=== PATIENT | male | born 1950 | race Caucasian/White ===

== ENCOUNTER 2018-11-22 04:19 | Inpatient (IN) | payer MEDICARE, OTHER ==
[2018-11-22] VITALS (13 sets, daily range): BP systolic 94–106; BP diastolic 53–62
[~2018-11-22] VITALS: Ht 177.8 cm; Wt 76.8 kg
[~2018-11-22 04:19] MED LIST: NO HOME MEDS
[2018-11-22] MEDS ORDERED: albuterol 2.5 MG/3 ML nebule CONTNEB PRN (04:25)
[2018-11-22 04:41] LABS: BASOPHILS # (AUTO) 0.1 X10'3 (0-0.2); BASOPHILS % (AUTO) 0.8 % (0-1); EOSINOPHILS % (AUTO) 7.6 % (0-6); HEMATOCRIT 48.7 % (42.0-52.0); HEMOGLOBIN 16.6 g/dl (14.0-17.9); LYMPHOCYTES % (AUTO) 15.9 % (21-51); MEAN CORPUSCULAR HEMOGLOBIN 32.3 PG (27.0-31.0); MEAN CORPUSCULAR HGB CONC 34.1 g/dL (33.0-36.5); MEAN CORPUSCULAR VOLUME 94.7 FL (78-98); MONOCYTES # (AUTO) 0.7 X10'3 (0-0.9); MONOCYTES % (AUTO) 5.8 % (2-12); NEUTROPHILS # (AUTO) 8.9 X10'3 (1.8-7.7); NEUTROPHILS % (AUTO) 69.9 % (42-75); PLATELET COUNT 180 X10'3 (140-440); RED BLOOD COUNT 5.15 X10'6 (4.70-6.10); WHITE BLOOD COUNT 12.7 X10'3 (4.5-11.0)
[2018-11-22 04:51] LABS: ABG BASE EXCESS -1.8 mmol/L (-2.0-3.0); ABG HCO3 24.8 mmol/L (22.0-26.0); ABG OXYGEN SATURATION 99.1 % (95-98); ABG PCO2 (T) 49.1 mmHg (35.0-45.0); ABG PH (T) 7.322 (7.350-7.450); ABG PO2 (T) 263.8 mmHg (83-108); ALLEN'S TEST Positive; FCOHb 0.8 % (0.5-1.5); FMetHb 0.3 % (0.3-1.12); MINUTE VOLUME 17 L/min; PATIENT TEMPERATURE 37.2; RESPIRATORY RATE 20 b/min; RESPIRATORY RATE (OBSERVED) 25 b/min; TOTAL HEMOGLOBIN 17.2 G/dl (14.0-17.9)
[2018-11-22 04:55] LABS: PARTIAL THROMBOPLASTIN TIME 27 SECONDS (22-32)
[2018-11-22 04:58] LABS: ALANINE AMINOTRANSFERASE 27 U/L (12-78); ALBUMIN 4.5 G/DL (3.4-5.0); ALBUMIN/GLOBULIN RATIO 1.2 (1.1-1.5); ALKALINE PHOSPHATASE 93 IU/L (46-116); ANION GAP 7 (8-16); ASPARTATE AMINO TRANSFERASE 23 U/L (10-37); BILIRUBIN,TOTAL 0.8 MG/DL (0.1-1.0); BLOOD UREA NITROGEN 18 MG/DL (7-18); BUN/CREATININE RATIO 17.5 (5.4-32.0); CALCIUM 9.5 MG/DL (8.5-10.1); CHLORIDE 105 MMOL/L (99-107); CREATININE 1.03 MG/DL (0.60-1.10); GLUCOSE 107 MG/DL (70-104); POTASSIUM 4.8 MMOL/L (3.5-5.1); SODIUM 141 MMOL/L (135-145); TOTAL CARBON DIOXIDE 29.1 MMOL/L (24-32); TOTAL PROTEIN 8.2 G/DL (6.4-8.2); eGFR 71 ML/MIN
--- NOTE | 2018-11-22 05:14 | NUR ---
Patient resting comfortably on Bipap, expresses relief of SOB. Family at bedside.
[2018-11-22 05:30] LABS: ABG BASE EXCESS -1.1 mmol/L (-2.0-3.0); ABG HCO3 24.4 mmol/L (22.0-26.0); ABG OXYGEN SATURATION 98.4 % (95-98); ABG PCO2 (T) 43.1 mmHg (35.0-45.0); ALLEN'S TEST Positive; FCOHb 0.5 % (0.5-1.5); FMetHb 0.3 % (0.3-1.12); FO2Hb 97.6 % (94-100); MINUTE VOLUME 14 L/min; RESPIRATORY RATE 20 b/min; RESPIRATORY RATE (OBSERVED) 23 b/min; TIDAL VOLUME 561 mL; TOTAL HEMOGLOBIN 17.3 G/dl (14.0-17.9)
[2018-11-22] MEDS ORDERED: dexamethasone sod phosphate 10mg/ml inj IV STA (05:30)
[2018-11-22] MEDS ORDERED: ALB0.5UD IH (05:39)
[2018-11-22] MEDS ORDERED: BUDE10.2 INH (05:39)
[2018-11-22] MEDS ORDERED: MULT-1074 PO (05:41)
[2018-11-22] MEDS ORDERED: mag hydrox/Alum hydrox/simeth 30ml oral suspension PO PRN (06:00)
[2018-11-22] MEDS ORDERED: ondansetron/PF 4mg/2ml inj IV PRN ×2 (06:00→09:50)
[2018-11-22] MEDS ORDERED: HYDROcodone/acetaminophen 5mg/325mg tablet PO PRN (06:00)
[2018-11-22] MEDS ORDERED: CefTRIAXone/D5W-Rocephin 1gm 50 ML IV ONE (06:00)
[2018-11-22] MEDS ORDERED: magnesium hydroxide 30ml (MOM) UD suspension PO PRN ×2 (06:00→09:50)
[2018-11-22] MEDS ORDERED: acetaminophen 325mg tablet PO PRN ×3 (06:00→09:50)
[2018-11-22] MEDS: normal saline 1000ml 1,000 ML IV SCH ×4 (06:51→22:01)
--- NOTE | 2018-11-22 06:51 | NUR ---
PT ANXIOUS IN BED ATTEMPTED TO CALL DR JACKSON, AWAITING CALL BACK.
[2018-11-22] MEDS ORDERED: LORazepam 2 mg/ml vial IV ONE (06:55)
[2018-11-22] MEDS ORDERED: albuterol 2.5 MG/3 ML nebule NEB SCH (07:00)
[2018-11-22] MEDS: budesonide 0.5mg/2ml UD nebule IH SCH ×2 (07:04→18:40)
[2018-11-22] MEDS ORDERED: sod chloride 0.9% 10ml flush syringe IV ONE (08:00)
[2018-11-22] MEDS ORDERED: methylPREDNISolone sod succ 125mg/2ml vial IV SCH (08:00)
[2018-11-22] MEDS ORDERED: etomidate 2mg/ml inj. ONE (08:00)
[2018-11-22] MEDS ORDERED: heparin, porcine 5000 units/ml vial SQ SCH (08:00)
[2018-11-22] MEDS ORDERED: succinylcholine 20mg/ml inj IV ONE ×2 (08:13→10:00)
[2018-11-22] MEDS: propofol 1000mg/100ml bottle 100 ML IV PRN ×7 (08:30→22:02)
[2018-11-22] MEDS: FENTANYL-0.9 % NACL/PF 100 ML IV PRN ×3 (08:31→15:30)
[2018-11-22 09:11] LABS: ABG BASE EXCESS -3.7 mmol/L (-2.0-3.0); ABG HCO3 24.9 mmol/L (22.0-26.0); ABG OXYGEN SATURATION 99.2 % (95-98); ABG PCO2 (T) 58.8 mmHg (35.0-45.0); ABG PH (T) 7.245 (7.350-7.450); ABG PO2 (T) 252.8 mmHg (83-108); FCOHb 0.6 % (0.5-1.5); FMetHb 0.5 % (0.3-1.12); FO2Hb 98.1 % (94-100); MINUTE VOLUME 11 L/min; PEEP 5 cm H2O; RESPIRATORY RATE 20 b/min; RESPIRATORY RATE (OBSERVED) 21 b/min; TOTAL HEMOGLOBIN 17.4 G/dl (14.0-17.9)
[2018-11-22] MEDS ORDERED: IPRA3AMP9 NEB (09:38)
[2018-11-22] MEDS ORDERED: HYDR-3972 PO (09:47)
[2018-11-22] MEDS ORDERED: ATOR10TA PO (09:47)
[2018-11-22] MEDS ORDERED: CHOL10002 PO (09:47)
[2018-11-22] MEDS ORDERED: DOCU100C40 PO (09:47)
[2018-11-22] MEDS ORDERED: GUAI200T5 PO (09:47)
[2018-11-22] MEDS ORDERED: FENTANYL-0.9 % NACL/PF 100 ML IV PRN (09:48)
[2018-11-22] MEDS ORDERED: propofol 1000mg/100ml bottle 100 ML IV SCH (09:48)
[2018-11-22] MEDS ORDERED: potassium Cl 20 mEq SR tablet PO PRN ×2 (09:50)
[2018-11-22] MEDS ORDERED: fentaNYL/PF 50MCG/1 ML 2ML syringe IV PRN (09:50)
[2018-11-22] MEDS ORDERED: potassium CL 10mEq/100ml bag 100 ML IV PRN ×2 (09:50)
[2018-11-22] MEDS ORDERED: ipratropium/albuterol 3ml nebule NEB PRN (09:50)
[2018-11-22] MEDS ORDERED: etomidate 2mg/ml inj. IV ONE (10:00)
[2018-11-22] MEDS ORDERED: ipratropium/albuterol 3ml nebule NEB SCH (11:00)
--- NOTE | 2018-11-22 11:10 | NUR ---
Pt arrived from ED via gurney and transferred to bed via slideboard. Pt sedated on propofol and fentanyl. 2 RN skin check performed with SABRA Magana. No wounds noted. Foam dsg placed to sacrum, pt hooked up to monitor with all VSS. Placed on vent on 50% FiO2. Pt placed in soft limb restraints. OGT in place. Pillows under all extremities. Will continue to monitor.
[2018-11-22] MEDS: ipratropium/albuterol 3ml nebule NEB SCH ×4 (11:13→22:28)
--- NOTE | 2018-11-22 12:05 | NUR ---
I have reviewed and agree with all medications administered and interventions performed by [facility] Student(ashley duarte) Addendum: 11/22/18 at 1206 by Andreia Goldberg RT Amended: Links added.
--- NOTE | 2018-11-22 18:15 | NUR ---
Problems reprioritized. Patient report given, questions answered & plan of care reviewed with Tor RN.
[2018-11-22] MEDS: methylPREDNISolone sod succ/PF 40mg inj. IV SCH (20:43)
[2018-11-22] MEDS: famotidine/PF 10 mg/ml inj IV SCH (20:43)
[2018-11-23] VITALS (24 sets, daily range): BP systolic 92–133; BP diastolic 45–78
[2018-11-23] MEDS: ipratropium/albuterol 3ml nebule NEB SCH ×6 (02:38→22:47)
[2018-11-23] MEDS: methylPREDNISolone sod succ/PF 40mg inj. IV SCH ×4 (03:08→20:47)
[2018-11-23] MEDS: propofol 1000mg/100ml bottle 100 ML IV PRN ×3 (03:08→17:35)
[2018-11-23 03:45] LABS: ABG BASE EXCESS -2.6 mmol/L (-2.0-3.0); ABG HCO3 23.2 mmol/L (22.0-26.0); ABG OXYGEN SATURATION 93.8 % (95-98); ABG PH (T) 7.356 (7.350-7.450); ABG PO2 (T) 63.6 mmHg (83-108); ALLEN'S TEST Positive; FCOHb 1.4 % (0.5-1.5); FMetHb 0.1 % (0.3-1.12); FO2Hb 92.4 % (94-100); MINUTE VOLUME 7 L/min; PATIENT TEMPERATURE 36.1; PEEP 5 cm H2O; RESPIRATORY RATE 20 b/min; RESPIRATORY RATE (OBSERVED) 20 b/min; TIDAL VOLUME 400 mL; TOTAL HEMOGLOBIN 15.7 G/dl (14.0-17.9)
--- NOTE | 2018-11-23 06:00 | NUR ---
RN Note -Shift Summary Attempting to wean sedation for extubation. During sedation vacation at beginning of shift, pt was very agitated and thrashing head and arms arm violently, coughing and bucking vent. Have been able to wean Fentanyl to 30 mcg and and Propofol 40 mcg with pt resting comfortably.
[2018-11-23] MEDS: FENTANYL-0.9 % NACL/PF 100 ML IV PRN (06:02)
[2018-11-23 06:36] LABS: ALANINE AMINOTRANSFERASE 26 U/L (12-78); ALBUMIN 3.9 G/DL (3.4-5.0); ALBUMIN/GLOBULIN RATIO 1.2 (1.1-1.5); ALKALINE PHOSPHATASE 79 IU/L (46-116); ANION GAP 8 (8-16); ASPARTATE AMINO TRANSFERASE 31 U/L (10-37); BILIRUBIN,TOTAL 0.7 MG/DL (0.1-1.0); BLOOD UREA NITROGEN 20 MG/DL (7-18); CALCIUM 8.4 MG/DL (8.5-10.1); CHLORIDE 105 MMOL/L (99-107); CREATININE 0.87 MG/DL (0.60-1.10); GLUCOSE 125 MG/DL (70-104); PHOSPHORUS 2.9 MG/DL (2.3-4.5); POTASSIUM 4.9 MMOL/L (3.5-5.1); SODIUM 140 MMOL/L (135-145); TOTAL CARBON DIOXIDE 27.3 MMOL/L (24-32); TOTAL PROTEIN 7.2 G/DL (6.4-8.2); TRIGLYCERIDES 157 MG/DL (20-135); eGFR 87 ML/MIN
[2018-11-23 06:51] LABS: BASOPHILS % (AUTO) 0 % (0-1); EOSINOPHILS % (AUTO) 0 % (0-6); HEMATOCRIT 43.9 % (42.0-52.0); HEMOGLOBIN 15.1 g/dl (14.0-17.9); LYMPHOCYTES # (AUTO) 0.8 X10'3 (1.1-4.8); LYMPHOCYTES % (AUTO) 5.9 % (21-51); MEAN CORPUSCULAR HEMOGLOBIN 32.8 PG (27.0-31.0); MEAN CORPUSCULAR HGB CONC 34.5 g/dL (33.0-36.5); MEAN CORPUSCULAR VOLUME 95.2 FL (78-98); MEAN PLATELET VOLUME 8.6 FL (7.4-10.4); MONOCYTES # (AUTO) 0.7 X10'3 (0-0.9); MONOCYTES % (AUTO) 5.2 % (2-12); NEUTROPHILS # (AUTO) 11.4 X10'3 (1.8-7.7); NEUTROPHILS % (AUTO) 88.9 % (42-75); PLATELET COUNT 180 X10'3 (140-440); RED BLOOD COUNT 4.61 X10'6 (4.70-6.10); RED CELL DISTRIBUTION WIDTH 14.1 % (11.5-14.5); WHITE BLOOD COUNT 12.8 X10'3 (4.5-11.0)
[2018-11-23 07:29] LABS: MAGNESIUM 2.1 MG/DL (1.5-2.4)
[2018-11-23] MEDS: budesonide 0.5mg/2ml UD nebule IH SCH ×2 (07:42→20:00)
[2018-11-23] MEDS ORDERED: CefTRIAXone/D5W-Rocephin 1gm 50 ML IV SCH (08:00)
[2018-11-23] MEDS: enoxaparin 40mg/0.4ml syringe SUBCUT SCH (08:00)
[2018-11-23] MEDS: CefTRIAXone/D5W-Rocephin 1gm 50 ML IV SCH (08:01)
[2018-11-23] MEDS: azithromycin/NS 500mg/250ml 250 ML IV SCH (08:01)
[2018-11-23] MEDS: famotidine/PF 10 mg/ml inj IV SCH ×2 (08:01→20:46)
--- NOTE | 2018-11-23 10:32 | NUR ---
Tube feeding consult, patient is intubated and sedated d/t respiratory failure and acute exacerbation of COPD, per MD note. Pt has h/o smoking Tube feeding recs below. Recommend: 1. Continuos tube feeding with Vital AF starting at 30 ml/hr and advance by 20 ml as tolerated to goal rate of 70 ml/hr to provide total volume of 1680 ml, 2016 cals, 126 g protein, and 1362 ml water. 2. Additional water flush 160 ml q 4 hours 3. Prealbumin q sunday and 4. daily weights Addendum: 11/23/18 at [address] Amended: Links added.
[2018-11-23] MEDS: normal saline 1000ml 1,000 ML IV SCH (12:40)
[2018-11-23] MEDS: mineral oil/petrolatum ophthal oint EACHEYE SCH ×2 (13:59→20:45)
--- NOTE | 2018-11-23 18:20 | NUR ---
Problems reprioritized. Patient report given, questions answered & plan of care reviewed with SABRA Pathak.
--- NOTE | 2018-11-23 18:29 | NUR ---
assumed care from Lucia malik no questions or concerns after assuming care
--- NOTE | 2018-11-23 19:30 | NUR ---
PATIENTS SON AND GRANDSON AT BEDSIDE VISITING PATENT IS ABLE TO RESPOND APPROPRIATELY USING HEAD KNODS AND THUMBS UP/DOWN FOR YES/NO QUESTIONS
[2018-11-23] MEDS: lactobacillus rhamnosus 10,000 MMU CELLS/CAPSULE PO SCH (20:46)
--- NOTE | 2018-11-23 21:47 | NUR ---
PATIENT IN BED EYES CLOSED RR EVEN UN LABORED NO OBSERVABLE S/S OF ACUTE STRESS AT THIS TIME
[2018-11-24] VITALS (24 sets, daily range): BP systolic 104–166; BP diastolic 52–89
--- NOTE | 2018-11-24 00:10 | NUR ---
patient in bed repositioned asked to be suctioned rr even un labored no observable s/s of acute stress at this time
[2018-11-24] MEDS: normal saline 1000ml 1,000 ML IV SCH ×2 (00:22→15:30)
[2018-11-24] MEDS: ipratropium/albuterol 3ml nebule NEB SCH ×6 (02:24→23:32)
[2018-11-24] MEDS: methylPREDNISolone sod succ/PF 40mg inj. IV SCH ×4 (02:38→20:58)
[2018-11-24] MEDS: mineral oil/petrolatum ophthal oint EACHEYE SCH ×4 (02:38→20:59)
--- NOTE | 2018-11-24 03:22 | NUR ---
patient in bed very calm, patient has been able to write down needs and questions with pen/paper. patient appears to be doing well, patient in bed eyes closed rr even un labored no observable s/s of acute stress at this time
[2018-11-24 03:55] LABS: ABG BASE EXCESS -1.1 mmol/L (-2.0-3.0); ABG HCO3 23.1 mmol/L (22.0-26.0); ABG OXYGEN SATURATION 93.5 % (95-98); ABG PCO2 (T) 36.7 mmHg (35.0-45.0); ABG PH (T) 7.416 (7.350-7.450); ABG PO2 (T) 64.8 mmHg (83-108); ALLEN'S TEST Positive; FCOHb 0.2 % (0.5-1.5); FMetHb 0.2 % (0.3-1.12); FO2Hb 93.1 % (94-100); MINUTE VOLUME 8 L/min; PATIENT TEMPERATURE 36.8; PEEP 5 cm H2O; RESPIRATORY RATE 20 b/min; RESPIRATORY RATE (OBSERVED) 20 b/min; TIDAL VOLUME 400 mL; TOTAL HEMOGLOBIN 14.6 G/dl (14.0-17.9)
--- NOTE | 2018-11-24 05:19 | NUR ---
PATIENT AWAKE IN BED EYES [id number] EASY TO AROUSE BY NAME, RR EVEN UN LABORED NO OBSERVABLE4 S/S OF ACUTE STRESS AT THIS TIME
[2018-11-24] MEDS: propofol 1000mg/100ml bottle 100 ML IV PRN (05:38)
[2018-11-24 05:47] LABS: ALANINE AMINOTRANSFERASE 25 U/L (12-78); ALBUMIN 3.5 G/DL (3.4-5.0); ALBUMIN/GLOBULIN RATIO 1.1 (1.1-1.5); ALKALINE PHOSPHATASE 64 IU/L (46-116); ANION GAP 7 (8-16); ASPARTATE AMINO TRANSFERASE 21 U/L (10-37); BILIRUBIN,TOTAL 0.4 MG/DL (0.1-1.0); BLOOD UREA NITROGEN 29 MG/DL (7-18); BUN/CREATININE RATIO 31.5 (5.4-32.0); CALCIUM 8.2 MG/DL (8.5-10.1); CHLORIDE 107 MMOL/L (99-107); CREATININE 0.92 MG/DL (0.60-1.10); GLUCOSE 144 MG/DL (70-104); MAGNESIUM 2.2 MG/DL (1.5-2.4); PHOSPHORUS 2.1 MG/DL (2.3-4.5); POTASSIUM 4.4 MMOL/L (3.5-5.1); SODIUM 140 MMOL/L (135-145); TOTAL CARBON DIOXIDE 26.3 MMOL/L (24-32); TOTAL PROTEIN 6.7 G/DL (6.4-8.2); eGFR 81 ML/MIN
[2018-11-24 05:54] LABS: BASOPHILS % (AUTO) 0.1 % (0-1); EOSINOPHILS % (AUTO) 0.1 % (0-6); HEMATOCRIT 40.8 % (42.0-52.0); HEMOGLOBIN 13.9 g/dl (14.0-17.9); LYMPHOCYTES # (AUTO) 0.6 X10'3 (1.1-4.8); MEAN CORPUSCULAR HEMOGLOBIN 32.3 PG (27.0-31.0); MEAN CORPUSCULAR HGB CONC 34.1 g/dL (33.0-36.5); MEAN CORPUSCULAR VOLUME 94.7 FL (78-98); MEAN PLATELET VOLUME 8.6 FL (7.4-10.4); MONOCYTES # (AUTO) 0.5 X10'3 (0-0.9); MONOCYTES % (AUTO) 3.2 % (2-12); NEUTROPHILS # (AUTO) 13.3 X10'3 (1.8-7.7); NEUTROPHILS % (AUTO) 92.6 % (42-75); PLATELET COUNT 174 X10'3 (140-440); RED BLOOD COUNT 4.31 X10'6 (4.70-6.10); RED CELL DISTRIBUTION WIDTH 13.9 % (11.5-14.5); WHITE BLOOD COUNT 14.4 X10'3 (4.5-11.0)
--- NOTE | 2018-11-24 06:21 | NUR ---
SBAR TO EDITH MONTAÑO NO QUESTIONS OR CONCERNS AFTER ASSUMING CARE
--- NOTE | 2018-11-24 06:25 | NUR ---
Patient in room [facility] 2013. I have received report from Lawson MONTAÑO and had the opportunity to ask questions and assume patient care. Addendum: 11/24/18 at 0625 by Janeth Trejo RN Amended: Links added.
[2018-11-24] MEDS: budesonide 0.5mg/2ml UD nebule IH SCH ×2 (07:00→19:12)
[2018-11-24] MEDS: CefTRIAXone/D5W-Rocephin 1gm 50 ML IV SCH (07:19)
[2018-11-24] MEDS: enoxaparin 40mg/0.4ml syringe SUBCUT SCH (07:21)
[2018-11-24] MEDS: famotidine/PF 10 mg/ml inj IV SCH ×2 (07:21→20:58)
[2018-11-24] MEDS: lactobacillus rhamnosus 10,000 MMU CELLS/CAPSULE PO SCH ×2 (07:21→20:58)
[2018-11-24] MEDS: azithromycin/NS 500mg/250ml 250 ML IV SCH (08:36)
--- NOTE | 2018-11-24 09:29 | NUR ---
Son at bedside.
--- NOTE | 2018-11-24 10:25 | NUR ---
Dirprivan decreased to 7.5 from 15. Pt. calm and alert at this time.
--- NOTE | 2018-11-24 11:57 | NUR ---
Pt. sat up at side of bed with PT.
[2018-11-24] MEDS: FENTANYL-0.9 % NACL/PF 100 ML IV PRN (14:48)
[2018-11-24] MEDS: methylnaltrexone br 12mg/0.6ml inj***SubQ only SQ SCH (15:45)
--- NOTE | 2018-11-24 19:15 | NUR ---
Informed Alex Lopez that pt has been vomiting tube feeding, order to D/C at this time.
--- NOTE | 2018-11-24 21:15 | NUR ---
Pt not tolerating free water as he is vomiting it up as well, will hold.
[2018-11-25] VITALS (24 sets, daily range): BP systolic 108–144; BP diastolic 47–79
[2018-11-25] MEDS: mineral oil/petrolatum ophthal oint EACHEYE SCH ×4 (02:33→20:44)
[2018-11-25] MEDS: methylPREDNISolone sod succ/PF 40mg inj. IV SCH ×4 (02:33→20:43)
[2018-11-25] MEDS: normal saline 1000ml 1,000 ML IV SCH ×2 (02:36→21:12)
[2018-11-25] MEDS: ipratropium/albuterol 3ml nebule NEB SCH ×4 (03:37→20:11)
[2018-11-25 03:51] LABS: ABG BASE EXCESS 2.4 mmol/L (-2.0-3.0); ABG HCO3 26.6 mmol/L (22.0-26.0); ABG OXYGEN SATURATION 91.8 % (95-98); ABG PCO2 (T) 39.5 mmHg (35.0-45.0); ABG PH (T) 7.445 (7.350-7.450); ABG PO2 (T) 58.2 mmHg (83-108); ALLEN'S TEST Positive; FCOHb 0.3 % (0.5-1.5); FMetHb 0.2 % (0.3-1.12); FO2Hb 91.3 % (94-100); PATIENT TEMPERATURE 36.7; PEEP 5 cm H2O; RESPIRATORY RATE (OBSERVED) 9 b/min; TOTAL HEMOGLOBIN 14.6 G/dl (14.0-17.9)
[2018-11-25 06:04] LABS: BASOPHILS % (AUTO) 0.1 % (0-1); EOSINOPHILS % (AUTO) 0 % (0-6); HEMATOCRIT 42.1 % (42.0-52.0); HEMOGLOBIN 14.2 g/dl (14.0-17.9); LYMPHOCYTES # (AUTO) 0.6 X10'3 (1.1-4.8); LYMPHOCYTES % (AUTO) 4.4 % (21-51); MEAN CORPUSCULAR HEMOGLOBIN 32.1 PG (27.0-31.0); MEAN CORPUSCULAR HGB CONC 33.7 g/dL (33.0-36.5); MEAN CORPUSCULAR VOLUME 95.1 FL (78-98); MEAN PLATELET VOLUME 8.7 FL (7.4-10.4); MONOCYTES # (AUTO) 0.5 X10'3 (0-0.9); MONOCYTES % (AUTO) 3.6 % (2-12); NEUTROPHILS # (AUTO) 11.7 X10'3 (1.8-7.7); NEUTROPHILS % (AUTO) 91.9 % (42-75); PLATELET COUNT 156 X10'3 (140-440); RED BLOOD COUNT 4.43 X10'6 (4.70-6.10); RED CELL DISTRIBUTION WIDTH 14.3 % (11.5-14.5); WHITE BLOOD COUNT 12.8 X10'3 (4.5-11.0)
[2018-11-25 06:12] LABS: ALANINE AMINOTRANSFERASE 25 U/L (12-78); ALBUMIN 3.5 G/DL (3.4-5.0); ALBUMIN/GLOBULIN RATIO 1.1 (1.1-1.5); ALKALINE PHOSPHATASE 57 IU/L (46-116); ANION GAP 6 (8-16); ASPARTATE AMINO TRANSFERASE 18 U/L (10-37); BILIRUBIN,TOTAL 0.6 MG/DL (0.1-1.0); BLOOD UREA NITROGEN 29 MG/DL (7-18); BUN/CREATININE RATIO 37.7 (5.4-32.0); CALCIUM 8.4 MG/DL (8.5-10.1); CHLORIDE 108 MMOL/L (99-107); CREATININE 0.77 MG/DL (0.60-1.10); GLUCOSE 123 MG/DL (70-104); MAGNESIUM 2.3 MG/DL (1.5-2.4); PHOSPHORUS 2.6 MG/DL (2.3-4.5); POTASSIUM 4.4 MMOL/L (3.5-5.1); PREALBUMIN 28.2 MG/DL (19-36); SODIUM 142 MMOL/L (135-145); TOTAL CARBON DIOXIDE 27.9 MMOL/L (24-32); TOTAL PROTEIN 6.8 G/DL (6.4-8.2); eGFR > 90 ML/MIN
[2018-11-25] MEDS: budesonide 0.5mg/2ml UD nebule IH SCH ×2 (07:16→20:11)
[2018-11-25] MEDS: famotidine/PF 10 mg/ml inj IV SCH ×2 (07:54→20:43)
[2018-11-25] MEDS: enoxaparin 40mg/0.4ml syringe SUBCUT SCH (07:56)
[2018-11-25] MEDS: azithromycin/NS 500mg/250ml 250 ML IV SCH (07:57)
[2018-11-25] MEDS: lactobacillus rhamnosus 10,000 MMU CELLS/CAPSULE PO SCH ×2 (07:57→20:35)
[2018-11-25] MEDS: CefTRIAXone/D5W-Rocephin 1gm 50 ML IV SCH (07:58)
[2018-11-25] MEDS ORDERED: ipratropium/albuterol 3ml nebule NEB PRN (10:05)
[2018-11-25] MEDS ORDERED: racepinephrine 11.25mg/0.5ml nebule NEB PRN (10:05)
--- NOTE | 2018-11-25 12:29 | NUR ---
F/u: Pt extubated advanced to mechanical soft/grind all/thin since edentulous per SP recs. LBM 11/22. Will monitor for ONS needs pending PO hx. Will continue to monitor. Recommend: 1. continue mechanical soft/thin/grind per SP recs since edentulous 2. monitor for ONS needs s/p extubation 3. bowel care as needed 4. wt per rx Addendum: 11/25/18 at [address] Amended: Links added.
--- NOTE | 2018-11-25 18:38 | NUR ---
Patient in room [facility] 2013. I have received report from Nathaly MONTAÑO and had the opportunity to ask questions and assume patient care.
[2018-11-26] VITALS (16 sets, daily range): BP systolic 107–144; BP diastolic 45–85
[2018-11-26] MEDS: mineral oil/petrolatum ophthal oint EACHEYE SCH ×2 (02:00→06:30)
[2018-11-26] MEDS: methylPREDNISolone sod succ/PF 40mg inj. IV SCH ×2 (02:02→07:42)
[2018-11-26] MEDS: ipratropium/albuterol 3ml nebule NEB SCH ×4 (03:08→18:57)
[2018-11-26 05:09] LABS: BASOPHILS % (AUTO) 0 % (0-1); EOSINOPHILS % (AUTO) 0 % (0-6); HEMOGLOBIN 13.5 g/dl (14.0-17.9); LYMPHOCYTES # (AUTO) 0.6 X10'3 (1.1-4.8); LYMPHOCYTES % (AUTO) 6.5 % (21-51); MEAN CORPUSCULAR HEMOGLOBIN 32.4 PG (27.0-31.0); MEAN CORPUSCULAR HGB CONC 34.7 g/dL (33.0-36.5); MEAN CORPUSCULAR VOLUME 93.3 FL (78-98); MEAN PLATELET VOLUME 8.7 FL (7.4-10.4); MONOCYTES # (AUTO) 0.4 X10'3 (0-0.9); MONOCYTES % (AUTO) 4.1 % (2-12); NEUTROPHILS # (AUTO) 8.8 X10'3 (1.8-7.7); NEUTROPHILS % (AUTO) 89.4 % (42-75); PLATELET COUNT 147 X10'3 (140-440); RED BLOOD COUNT 4.18 X10'6 (4.70-6.10); RED CELL DISTRIBUTION WIDTH 14.1 % (11.5-14.5); WHITE BLOOD COUNT 9.8 X10'3 (4.5-11.0)
[2018-11-26 05:23] LABS: ALANINE AMINOTRANSFERASE 24 U/L (12-78); ALBUMIN 3.1 G/DL (3.4-5.0); ALBUMIN/GLOBULIN RATIO 1.1 (1.1-1.5); ALKALINE PHOSPHATASE 47 IU/L (46-116); ANION GAP 6 (8-16); ASPARTATE AMINO TRANSFERASE 12 U/L (10-37); BILIRUBIN,TOTAL 0.5 MG/DL (0.1-1.0); BLOOD UREA NITROGEN 30 MG/DL (7-18); BUN/CREATININE RATIO 34.5 (5.4-32.0); CHLORIDE 109 MMOL/L (99-107); CREATININE 0.87 MG/DL (0.60-1.10); GLUCOSE 125 MG/DL (70-104); MAGNESIUM 2.3 MG/DL (1.5-2.4); PHOSPHORUS 2.6 MG/DL (2.3-4.5); POTASSIUM 4.2 MMOL/L (3.5-5.1); SODIUM 143 MMOL/L (135-145); TOTAL CARBON DIOXIDE 27.9 MMOL/L (24-32); TOTAL PROTEIN 5.9 G/DL (6.4-8.2); eGFR 87 ML/MIN
--- NOTE | 2018-11-26 06:24 | NUR ---
Problems reprioritized. Patient report given, questions answered & plan of care reviewed with Janeth MONTAÑO.
--- NOTE | 2018-11-26 06:33 | NUR ---
Patient in room [facility] 2013. I have received report from Rachael MONTAÑO and had the opportunity to ask questions and assume patient care.
[2018-11-26] MEDS: budesonide 0.5mg/2ml UD nebule IH SCH ×2 (06:51→18:57)
[2018-11-26] MEDS: methylnaltrexone br 12mg/0.6ml inj***SubQ only SQ SCH (07:28)
[2018-11-26] MEDS: normal saline 1000ml 1,000 ML IV SCH (07:30)
[2018-11-26] MEDS: CefTRIAXone/D5W-Rocephin 1gm 50 ML IV SCH (07:40)
[2018-11-26] MEDS: famotidine/PF 10 mg/ml inj IV SCH (07:41)
[2018-11-26] MEDS: enoxaparin 40mg/0.4ml syringe SUBCUT SCH (07:41)
[2018-11-26] MEDS: lactobacillus rhamnosus 10,000 MMU CELLS/CAPSULE PO SCH ×2 (07:41→19:34)
[2018-11-26] MEDS: azithromycin/NS 500mg/250ml 250 ML IV SCH (08:15)
--- NOTE | 2018-11-26 10:22 | NUR ---
Pt's son and DIL at bedside. Pt. sitting up in a chair after ambulating with PT.
--- NOTE | 2018-11-26 10:49 | NUR ---
ROUNDS NOTE: Pt. to transfer to PCU with Tele per Dr. Carbone. DC IVF.
--- NOTE | 2018-11-26 12:06 | NUR ---
Patient in room [facility] 2013. I have received report from Janeth MONTAÑO and had the opportunity to ask questions and assume patient care.
--- NOTE | 2018-11-26 12:20 | NUR ---
Received patient from CICU. Vital signs taken and within normal limits. laboratory monitor placed and alarms audible. Patient oriented to room and call light.
--- NOTE | 2018-11-26 12:24 | NUR ---
Pt. transferred to 3024A in wheelchair with all belongings in stable condition after giving phone report to Sasha MONTAÑO.
[2018-11-26] MEDS: methylPREDNISolone sod succ 125mg/2ml vial IV SCH ×2 (13:52→19:34)
--- NOTE | 2018-11-26 18:06 | NUR ---
Problems reprioritized. Patient report given, questions answered & plan of care reviewed with Mariana & Kenisha MONTAÑO. Patient stable at time of transfer of care.
[2018-11-26] MEDS: famotidine 20mg tablet PO SCH (19:34)
[2018-11-27] MEDS: HYDROcodone/acetaminophen 10/325mg tab PO PRN ×4 (00:24→19:23)
[2018-11-27] MEDS: ipratropium/albuterol 3ml nebule NEB SCH ×4 (01:26→20:07)
[2018-11-27 03:00] VITALS: BP 128/69
[2018-11-27] MEDS: methylPREDNISolone sod succ 125mg/2ml vial IV SCH ×4 (03:00→19:22)
[2018-11-27 05:18] LABS: BASOPHILS % (AUTO) 0.2 % (0-1); EOSINOPHILS % (AUTO) 0 % (0-6); HEMATOCRIT 39.8 % (42.0-52.0); HEMOGLOBIN 13.9 g/dl (14.0-17.9); LYMPHOCYTES # (AUTO) 0.7 X10'3 (1.1-4.8); LYMPHOCYTES % (AUTO) 7.2 % (21-51); MEAN CORPUSCULAR HEMOGLOBIN 32.6 PG (27.0-31.0); MEAN CORPUSCULAR VOLUME 93.2 FL (78-98); MEAN PLATELET VOLUME 8.6 FL (7.4-10.4); MONOCYTES # (AUTO) 0.8 X10'3 (0-0.9); MONOCYTES % (AUTO) 8.4 % (2-12); NEUTROPHILS # (AUTO) 8.6 X10'3 (1.8-7.7); NEUTROPHILS % (AUTO) 84.2 % (42-75); PLATELET COUNT 137 X10'3 (140-440); RED BLOOD COUNT 4.27 X10'6 (4.70-6.10); RED CELL DISTRIBUTION WIDTH 13.8 % (11.5-14.5); WHITE BLOOD COUNT 10.2 X10'3 (4.5-11.0)
[2018-11-27 05:26] LABS: ALANINE AMINOTRANSFERASE 29 U/L (12-78); ALBUMIN 3.1 G/DL (3.4-5.0); ALBUMIN/GLOBULIN RATIO 1.1 (1.1-1.5); ALKALINE PHOSPHATASE 43 IU/L (46-116); ANION GAP 5 (8-16); ASPARTATE AMINO TRANSFERASE 16 U/L (10-37); BILIRUBIN,TOTAL 0.6 MG/DL (0.1-1.0); BLOOD UREA NITROGEN 26 MG/DL (7-18); BUN/CREATININE RATIO 33.8 (5.4-32.0); CALCIUM 8.3 MG/DL (8.5-10.1); CHLORIDE 109 MMOL/L (99-107); CREATININE 0.77 MG/DL (0.60-1.10); GLUCOSE 124 MG/DL (70-104); MAGNESIUM 2.3 MG/DL (1.5-2.4); PHOSPHORUS 2.6 MG/DL (2.3-4.5); POTASSIUM 4.2 MMOL/L (3.5-5.1); SODIUM 143 MMOL/L (135-145); TOTAL CARBON DIOXIDE 28.8 MMOL/L (24-32); TOTAL PROTEIN 5.8 G/DL (6.4-8.2); eGFR > 90 ML/MIN
--- NOTE | 2018-11-27 05:41 | NUR ---
[place] documentation: I have reviewed and agree with all interventions, assessments performed and documented by Kenisha MONTAÑO. [place] Medication Administration: For this medication-pass time frame, all medication were reviewed, dispensed, administered and documented per hospital policy by Kenisha MONTAÑO.
[2018-11-27 06:00] VITALS: BP 131/69
--- NOTE | 2018-11-27 06:29 | NUR ---
Problems reprioritized. Patient report given, questions answered & plan of care reviewed with Carlee MONTAÑO.
[2018-11-27] MEDS: famotidine 20mg tablet PO SCH ×2 (07:42→20:00)
[2018-11-27] MEDS: enoxaparin 40mg/0.4ml syringe SUBCUT SCH (07:42)
[2018-11-27] MEDS: lactobacillus rhamnosus 10,000 MMU CELLS/CAPSULE PO SCH ×2 (07:43→19:22)
[2018-11-27] MEDS: azithromycin 250mg tablet PO SCH (07:43)
[2018-11-27] MEDS: CefTRIAXone/D5W-Rocephin 1gm 50 ML IV SCH (08:02)
[2018-11-27] MEDS: budesonide 0.5mg/2ml UD nebule IH SCH ×2 (09:24→20:07)
--- NOTE | 2018-11-27 09:47 | NUR ---
Reassessment: Pt s/p f/u BSS 11/[address] recs to continue current diet as pt is tolerating. Pt likely meeting nutrient needs consistently documented with 100% PO intake with some 50% PO intake. Wt stable. LBM 11/26. No edema or wounds. No nutrition diagnosis at this time. Will continue to follow. Recommend: 1. continue mechanical soft/grind all with thin liquids per SP recs since edentulous 2. monitor for ONS needs 3. bowel care as needed 4. wt per rx Addendum: 11/27/18 at [address] Amended: Links added.
[2018-11-27 11:00] VITALS: BP 131/69
--- NOTE | 2018-11-27 12:48 | NUR ---
patient reproting shortness of breath, RT paged
[2018-11-27 15:00] VITALS: BP 129/54
[2018-11-27 19:00] VITALS: BP 122/68
[2018-11-27 23:00] VITALS: BP 121/57
[2018-11-28 03:00] VITALS: BP 130/52
[2018-11-28] MEDS: ipratropium/albuterol 3ml nebule NEB SCH ×3 (03:39→15:33)
[2018-11-28 05:13] LABS: MAGNESIUM 2.1 MG/DL (1.5-2.4); PHOSPHORUS 3.4 MG/DL (2.3-4.5); PREALBUMIN 34.4 MG/DL (19-36)
[2018-11-28 06:00] VITALS: BP 140/65
--- NOTE | 2018-11-28 06:00 | NUR ---
Patient in room PCU 3024. I have received report from Shannan MONTAÑO and had the opportunity to ask questions and assume patient care.
[2018-11-28] MEDS: methylPREDNISolone sod succ 125mg/2ml vial IV SCH (09:00)
[2018-11-28] MEDS: azithromycin 250mg tablet PO SCH (09:07)
[2018-11-28] MEDS: enoxaparin 40mg/0.4ml syringe SUBCUT SCH (09:07)
[2018-11-28] MEDS: lactobacillus rhamnosus 10,000 MMU CELLS/CAPSULE PO SCH (09:08)
[2018-11-28] MEDS: famotidine 20mg tablet PO SCH (09:09)
[2018-11-28] MEDS: HYDROcodone/acetaminophen 10/325mg tab PO PRN (09:11)
[2018-11-28] MEDS: CefTRIAXone/D5W-Rocephin 1gm 50 ML IV SCH (09:17)
[2018-11-28] MEDS: budesonide 0.5mg/2ml UD nebule IH SCH (10:26)
--- NOTE | 2018-11-28 10:31 | NUR ---
Patient has difficulty with accommodation with the eyes (following pen light). The right eye tends to drift away laterally. Addendum: 11/28/18 at 1047 by Juan Carlos BARRETT Amended: Links added.
[2018-11-28 11:00] VITALS: BP 146/63
--- NOTE | 2018-11-28 11:08 | NUR ---
Student Medication Administration: For this medication-pass time frame, all medication were reviewed, dispensed, administered and documented per hospital policy by Alex BARRETT [facility] [place].
--- NOTE | 2018-11-28 11:09 | NUR ---
Student documentation: I have reviewed interventions, assessments performed and documented by Luke BARRETT [facility].
[2018-11-28] MEDS ORDERED: PRED5TAB PO (14:45)
[2018-11-28] MEDS ORDERED: AZI25OT PO (14:45)
[2018-11-28] MEDS ORDERED: FAMO20TA8 PO (14:45)
[2018-11-28 15:00] VITALS: BP 123/58
--- NOTE | 2018-11-28 16:45 | NUR ---
Patient discharged stable to home. Discharge instructions given to patient and daughter. All personal belongings returned to patient. Peripheral IV to left hand removed, cannula intact. Handwritten prescriptions given to patient as he uses [facility]. Patient states he will call [facility] tomorrow morning and try to get an appointment. Tele box removed and returned to telecasting engineer room. Patient wheeled out via wheelchair by staff to private vehicle accompanied by daughter.
== END 2018-11-28 16:45 | disposition home or self-care (01) | DRG 208 ==
LOC: ER 04:20 → ED HOLD 06:51 → CICU 2S 11:09 → PCU 3S 11-26 12:20
PROVIDERS: ADMIT Internal Medicine; ATTEND Internal Medicine
PROC: 5A1945Z Respiratory Ventilation, 24-96 Consecutive Hours (ICD-10-PCS; principal; 2018-11-22)
PROC: 0BH17EZ Insertion of Endotracheal Airway into Trachea, Via Natural or Artificial Opening (ICD-10-PCS; 2018-11-22)
PROC: 5A09357 Assistance with Respiratory Ventilation, Less than 24 Consecutive Hours, Continuous Positive Airway Pressure (ICD-10-PCS; 2018-11-22)
DX: J96.20 Acute and chronic respiratory failure, unspecified whether with hypoxia or hypercapnia (principal); J44.1 Chronic obstructive pulmonary disease with (acute) exacerbation; B19.20 Unspecified viral hepatitis C without hepatic coma; M54.9 Dorsalgia, unspecified; G89.29 Other chronic pain; Z79.51 Long term (current) use of inhaled steroids; Z85.820 Personal history of malignant melanoma of skin; Z87.891 Personal history of nicotine dependence; Z99.81 Dependence on supplemental oxygen
CPT/HCPCS: 36415; 36600; 71045; 74018; 80053; 82803; 82948; 83605; 83735; 83880; 84100; 84134; 84145; 84478; 84484; 85018; 85025; 85610; 85730; 87040; 87070; 87081; 87502; 87503; 92508; 92616; 93005; 94002; 94003; 94640; 94660; 94667; 94668; 94760; 96374; 96375; 97116; 97162; 97530; 99291; G0378; J0330; J0456; J0696; J1100; J1644; J1650; J2060; J2212; J2704; J2920; J2930; J3010; J3490; J7626